=== PATIENT | female | born 1960 | race American Indian/Alaskan Native ===

== ENCOUNTER 2021-08-06 22:13 | Emergency (ER) | payer OTHER ==
[2021-08-06 22:19] VITALS: BP 161/94
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
[2021-08-06] MEDS ORDERED: ERYTHROMYCIN 5 MG/1 GM OPHTH OINT OD ONE (23:26)
== END 2021-08-07 00:30 | disposition home or self-care (01) ==
LOC: ED 22:13
DX: H57.11 Ocular pain, right eye (principal); Z79.899 Other long term (current) drug therapy
CPT/HCPCS: 99282